=== PATIENT | male | born 1955 | race Caucasian/White ===

== ENCOUNTER 2024-08-01 15:45 | Inpatient (IN) | payer OTHER, MEDICARE ==
[~2024-08-01] VITALS: Ht 180.3 cm; Wt 72.4 kg
[2024-08-01] MEDS ORDERED: NS 1,000 ML IV SCH ×2 (16:25→17:30)
[2024-08-01] MEDS ORDERED: Ondansetron HCl 2 MG / ML 2ML Vial IV PRN (17:30)
[2024-08-01] MEDS ORDERED: FentaNYL Citrate 50 MCG/ML 2 ML Injection IV PRN (17:30)
[2024-08-01] MEDS ORDERED: FLU VACC TS2024-25(6MOS UP)/PF 45 MCG/0.5 ML SYRINGE IM SCH (17:35)
[2024-08-01 19:46] VITALS: BP 138/78
[2024-08-01] MEDS ORDERED: FLUT.05NI (20:01)
[2024-08-01] MEDS ORDERED: ZYRTEC10 M2 (20:02)
[2024-08-02] VITALS (10 sets, daily range): BP systolic 130–153; BP diastolic 73–90
[2024-08-02 05:12] LABS: BASOPHILS ABSOLUTE AUTO 0.03 K/mm3 (0.00-0.23); BASOPHILS PERCENT AUTO 0 % (0-2); EOSINOPHILS PERCENT AUTO 0 % (0-6); Hemoglobin 14.9 g/dL (13.5-17.5); IMMATURE GRAN ABSOLUTE AUTO 0.07 K/mm3 (0.00-0.10); IMMATURE GRAN PERCENT AUTO 1 % (0-1); LYMPHOCYTES ABSOLUTE AUTO 0.99 K/mm3 (0.84-5.20); LYMPHOCYTES PERCENT AUTO 7 % (21-46); MONOCYTES ABSOLUTE AUTO 1.44 K/mm3 (0.16-1.47); MONOCYTES PERCENT AUTO 10 % (4-13); Mean Corpuscular HGB 30.3 pg (26.0-34.0); Mean Corpuscular HGB Conc 34.7 g/dL (31.5-36.5); Mean Corpuscular Volume 88 fL (80-100); Mean Platelet Volume 10.4 fL (9.1-12.4); NEUTROPHILS ABSOLUTE AUTO 11.66 K/mm3 (1.96-9.15); NEUTROPHILS PERCENT AUTO 82 % (41-73); Platelet Count 233 K/mm3 (150-400); RDW Coefficient Variation 12.7 % (11.7-14.2); RDW Standard Deviation 40.9 fL (35.1-46.3); Red Blood Cell Count 4.91 M/mm3 (4.30-5.90); White Blood Cell Count 14.19 K/mm3 (4.00-11.30)
--- NOTE | 2024-08-02 05:12 | NUR ---
HOBBER SUMMARY PT ARRIVED TO THE UNIT AT APPROXIMATELY 1999. FROM [id number] HE HAS HAD ABOUT 300CC OUT FROM HIS NG TUBE AND ABOUT 75CC OF ICE CHIPS. SINCE GETTING HIS NG TUBE PLACED IN THE ER HE HAS HAD MINIMAL ABDOMINAL PAIN, REQUIRING NO PAIN MEDICINE. HES HAD NO NAUSEA. NS @100. ABDOMEN STILL FIRM AND DISTENDED.
[2024-08-02 05:47] LABS: Bun/Creatinine Ratio 30.7 (12.0-20.0); Calcium, Blood 9.1 mg/dL (8.5-10.1); Creatinine, Blood 0.78 mg/dL (0.60-1.20); Magnesium, Blood 1.8 mg/dL (1.6-2.4); Potassium, Blood 4.5 mmol/L (3.5-5.5)
[2024-08-02] MEDS ORDERED: NS 1,000 ML IV ONE (06:20)
[2024-08-02] MEDS ORDERED: Lactated Ringer's 1,000 ML IV SCH (10:45)
--- NOTE | 2024-08-02 12:00 | NUR ---
WEDDING RING REMOVED AND GAVE TO BHARAT.
[2024-08-02] MEDS ORDERED: Bupivacaine 0.5% HCl 5 MG/ML 30MLVIAL ONE (13:11)
[2024-08-02] MEDS ORDERED: propofoL 20 ML IV ONE (14:14)
[2024-08-02] MEDS ORDERED: FentaNYL Citrate 50 MCG/ML 2 ML Injection ONE ×2 (14:15→14:52)
[2024-08-02] MEDS ORDERED: Rocuronium Bromide 10 MG/ML 5ML Injection IV ONE (14:15)
[2024-08-02] MEDS ORDERED: Lidocaine HCl 2% 20 ML MDV ONE (14:15)
[2024-08-02] MEDS ORDERED: Dexamethasone Sod Phos 10 MG/ML 1ML VIAL ONE (14:32)
[2024-08-02] MEDS ORDERED: Sugammadex Sodium 200 MG/2ML SDV (100 MG/ML) ONE (15:06)
[2024-08-02] MEDS ORDERED: Ondansetron HCl 2 MG / ML 2ML Vial ONE (15:06)
--- NOTE | 2024-08-02 17:44 | NUR ---
SHIFT SUMMARY PT AWAKE DURING SHIFT REPORT, WATCHING TV. NGT TO LIS. DR BERRIOS IN TO SEE PT AND DISCUSS PLAN OF CARE. LATER DR KUMAR IN TO SEE PT AND DISCUSS OPTION OF SX. PT ABLE TO USE URINAL IN BED. NO BM AND NO FLATUS TO PRESENT. PT TAKEN DOWN TO OR AFTER 11:00 THIS MORNING, RETURNING TO RM @ 1545 THIS AFTERNOON. PT AWAKE AND ABLE TO SLIDE HIMSELF ACROSS TO HIS BED. PER PACU REPORT, PT HAD EXPLORITORY LAP. WITH 2 SITES; ADHESIONS RELEASED. PER CARRIE SNYDER, NGT WAS PULLED IN OR. PT LYING HF WATCHING TV AT THIS TIME. NO ACUTE DISTRESS. ABD REMAINS MODERATELY DISTENDED. NO C/O PAIN. VSS; SEE CHART. DENIES FURTHER NEEDS AT THIS TIME. CALL LT IN REACH.
[2024-08-03 03:42] VITALS: BP 132/111
[2024-08-03 03:45] VITALS: BP 132/74
[2024-08-03 05:51] LABS: Hematocrit 38.4 % (37.0-53.0); Hemoglobin 13.1 g/dL (13.5-17.5); Mean Corpuscular HGB 30.1 pg (26.0-34.0); Mean Corpuscular HGB Conc 34.1 g/dL (31.5-36.5); Mean Corpuscular Volume 88 fL (80-100); Mean Platelet Volume 10.5 fL (9.1-12.4); Platelet Count 183 K/mm3 (150-400); RDW Coefficient Variation 12.5 % (11.7-14.2); RDW Standard Deviation 40.9 fL (35.1-46.3); Red Blood Cell Count 4.35 M/mm3 (4.30-5.90); White Blood Cell Count 8.11 K/mm3 (4.00-11.30)
[2024-08-03 06:12] LABS: Bun/Creatinine Ratio 35.5 (12.0-20.0); Calcium, Blood 7.8 mg/dL (8.5-10.1); Creatinine, Blood 0.73 mg/dL (0.60-1.20)
--- NOTE | 2024-08-03 06:20 | NUR ---
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 HE HAS WALKED THE UNIT AND HAS PASSED GAS. HE IS TOLERATING SIPS OF WATER AND ICE CHIPS. INCISIONS WNL. VSS.
[2024-08-03 07:24] VITALS: BP 126/78
--- NOTE | 2024-08-03 10:55 | NUR ---
am note this rn assumed care at 0700. vital signs stable. neuro is intact. patient is able to make needs known and uses call light appropriately. patient is alert and oriented x4. denies pain, chest pain/pressure, or shortness of breath. abd is firm and distended. patient is passing gas but has not had a bowel movement. see shift assessment for further detials. md marks by this am and advanced diet to clear liquid and to advance diet as tolerated. possible discharge tomorrow.
[2024-08-03 15:36] VITALS: BP 127/85
--- NOTE | 2024-08-03 17:44 | NUR ---
shift summary patient had 2 bowel movements this afternoon. patient independent in the room and calls if needing assistance. patient walked around the unit today and doing exercises in room. no acute changes throughout the shift. plan remains up to date
[2024-08-03 19:28] VITALS: BP 119/75
[2024-08-04 05:41] VITALS: BP 116/77
--- NOTE | 2024-08-04 05:59 | NUR ---
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 IS EATING AND DRINKING WITH NO NAUSEA OR PAIN. HE HAS BEEN WALKING AROUND THE UNIT AND PASSING GAS/HAVING BOWEL MOVEMENTS. NO OVERNIGHT ISSUES.
[2024-08-04 07:17] VITALS: BP 136/75
[2024-08-04] MEDS ORDERED: MIRALAX17 GM PO (10:23)
--- NOTE | 2024-08-04 11:23 | NUR ---
SUMMARY/DISCHARGE PT DISCHARGED TO HOME, PT VERBALIZED UNDERSTANDING OF DISCHARGE ORDERS REGARDING MEDICATIONS AND FOLLOW UP, PT DECLINED A WHEELCHAIR AND WALKED OUT TO THE ELEVATORS ACCOMPANIED BY HIS SPOUSE
== END 2024-08-04 10:50 | disposition home or self-care (01) | DRG 336 ==
LOC: ER 15:45 → MEDS 17:26 → ENPENDDIS 08-04 10:30 → MEDS 08-04 10:50
PROVIDERS: Internal Medicine; Nurse Practitioner Acute Care; Surgery; ADMIT Internal Medicine
PROC: 0DNU4ZZ Release Omentum, Percutaneous Endoscopic Approach (ICD-10-PCS; principal; 2024-08-02 13:00)
DX: K56.51 Intestinal adhesions [bands], with partial obstruction (principal); E87.1 Hypo-osmolality and hyponatremia; Z88.8 Allergy status to other drugs, medicaments and biological substances
CPT/HCPCS: 36415; 71045; 80048; 83735; 85025; 85027; 93005; 93010; 99285-25; J1100; J2405; J2704; J3010; J7030; J7120